=== PATIENT | male | born 1950 | race African-American/Black ===

== ENCOUNTER 2023-06-20 11:04 | Emergency (ER) | payer OTHER ==
[~2023-06-20 11:04] MED LIST: Dextrose 5% in Water 1,000 ML BAG ONE
[2023-06-20] MEDS ORDERED: Sodium Chloride 0.9% 1,000 ML ONE (11:47)
[2023-06-20 12:36] LABS: Hematocrit 50.2 % (42.0-52.0); Hemoglobin 14.7 g/dL (14.0-18.0); Mean Corpuscular HGB CONC 29.2 g/dL (32.0-36.0); Mean Corpuscular Hemoglobin 28.6 pg (27.0-31.0); Mean Corpuscular Volume 97.8 fl (78.0-98.0); Mean Platelet Volume 9.3 fL (7.4-10.4); Platelet Count 132 10x3/uL (130-400); RBC Distribution Width 15.9 % (11.5-14.5); Red Blood Cell (RBC) Count 5.13 mill/uL (4.70-6.10); White Blood Cell (WBC) Count 8.7 10x3/uL (4.8-10.8)
[2023-06-20 12:48] LABS: Troponin I 0.027 ng/mL (< 0.028)
[2023-06-20 12:55] LABS: Band 2 % (5-11); Lymphocytes 18 % (21-51); Neutrophil 75 % (42-75)
[2023-06-20 12:56] LABS: Anisocytosis SLIGHT = 6-15 cells (100X) (0-5/hpf); MDiff Complete? YES; Monocytes 5 % (0-10); Platelet Adequacy Comment Appears Adequate
[2023-06-20 13:05] LABS: Sodium 161 mmol/L (136-145)
[2023-06-20 13:06] LABS: Carbon Dioxide 20 mmol/L (23-31); Chloride 127 mmol/L (98-107); Potassium 3.7 mmol/L (3.5-5.1)
[2023-06-20 13:07] LABS: ALT (SGPT) 37 U/L (8-55); AST (SGOT) 30 U/L (5-34); Albumin 3.6 g/dL (3.4-4.8); Alkaline Phosphatase 76 U/L (40-110); BUN (Urea Nitrogen) 69 mg/dL (8.4-25.7); Bilirubin, Total 0.7 mg/dL (0.2-1.2); CK (CPK) 27 U/L (30-200); Calc. Creatinine Clearance 0 mL/min (70-130); Calcium 11.4 mg/dL (7.6-10.4); Estimated GFR 32; Globulin 3.8 g/dL (2.4-3.5); Glucose 130 mg/dL (83-110); Magnesium 2.9 mg/dL (1.6-2.6); Protein, Total 7.4 g/dL (5.8-8.1)
[2023-06-20 13:08] LABS: Anion Gap 18 mmol/L (10-20)
[2023-06-20] MEDS ORDERED: Dextrose 5 % And 0.9 % NaCl 1,000 ML ONE (13:41)
[2023-06-20 16:44] LABS: Lactic Acid 1.7 mmol/L (0.5-2.2)
== END 2023-06-20 17:45 | disposition short-term general hospital (02) ==
LOC: MADERS 11:04
DX: E87.0 Hyperosmolality and hypernatremia (principal); N17.9 Acute kidney failure, unspecified; R41.82 Altered mental status, unspecified; E11.9 Type 2 diabetes mellitus without complications; I10 Essential (primary) hypertension; Z79.899 Other long term (current) drug therapy
CPT/HCPCS: 70450; 71045; 80053; 82550; 83605; 83735; 84484; 85025; 87040; 93005; 94760; 96360; 96361; J7042; J7050; J7070